=== PATIENT | female | born 1990 | race Caucasian/White ===

== ENCOUNTER 2017-08-02 23:29 | Emergency (ER) | payer OTHER ==
[~2017-08-02] VITALS: Ht 185.4 cm; Wt 77.1 kg
[~2017-08-02 23:29] MED LIST: CLIN150; CLIN300 PO; RXSULTRIDS; SULTRIDS PO; [UNRECOGNIZED DRUG - REMARK]; [UNRECOGNIZED DRUG - REMARK]
[2017-08-02] MEDS ORDERED: Cyclobenzaprine5 MG PO (23:49)
== END 2017-08-03 00:10 | disposition home or self-care (01) ==
LOC: ER 23:29
DX: T14.8XXA Other injury of unspecified body region, initial encounter (principal); V89.2XXA Person injured in unspecified motor-vehicle accident, traffic, initial encounter; Z88.0 Allergy status to penicillin; Z79.899 Other long term (current) drug therapy
CPT/HCPCS: 96372; 99283; J1885